=== PATIENT | male | born 1970 | race Caucasian/White ===

== ENCOUNTER 2021-10-17 01:48 | Day surgery (SDC) | payer OTHER, SELFPAY ==
[2021-10-03 13:51] VITALS: BMI 27.1
--- NOTE | 2021-10-16 20:49 | PM.HPGS ---
History of Present Illness History of Present Illness Consent: Risks, benefits, and alternatives have been discussed and questions answered. Patient agrees to proceed with procedure. Chief complaint: neoplasm screening Narrative: Daylin Hernandez is a 51 year old male referred for olon cancer screening Review of Systems Review of Systems: All systems reviewed & are unremarkable except as noted in HPI and below PMFSH Past Medical History Medical History Acute idiopathic gout involving toe of right foot Daytime hypersomnolence OFELIA (obstructive sleep apnea) Snoring Surgical History Surgical History S/P hemorrhoidectomy Status post right foot surgery Social History Social History Smoking packs per day: 0.5 Smoking cigarettes per day: 10.0 Smoking status: Former smoker Tobacco type: cigarettes Second hand tobacco smoke exposure: No Smoking end date: 02/09/16 Alcohol intake: current Drinks per week: 5 Substance use: never Substance use type: does not use Living arrangements: with family Gender identity (if verbalized by the patient): Male Spiritual care concerns: No Meds Home Medications and Allergies Home Medications Medication Instructions Recorded Confirmed Type colchicine 0.6 mg tablet 0.6 mg PO DAILY #30 tabs 09/10/21 10/17/21 Rx meloxicam 7.5 mg tablet 7.5 mg PO DAILY #90 tabs 09/10/21 10/17/21 Rx Allergies Allergy/AdvReac Type Severity Reaction Status Date / Time No Known Allergies Allergy Verified 10/17/21 10:30 Exam Resp: Auscultation: clear to auscultation bilaterally Cardio: Rate: regular rate Rhythm: regular rhythm GI: GI Palp: Yes Soft to palpation and No Tenderness to palpation present (GI) Assessment and Plan Assessment and plan (1) Colon cancer screening: Code(s): Z12.11 - Encounter for screening for malignant neoplasm of colon Status: Acute Assessment and Plan: Colonoscopy with possible biopsy or polypectomy or cautery or injection of substances.
[2021-10-17 10:20] VITALS: BP 134/87; PULSE 70; RESP 18; TEMP 36.7; O2SAT 95; BMI 27.1
[2021-10-17] MEDS: LACTATED RINGERS 1,000 ML 150 ML IV CONT (10:52)
--- NOTE | 2021-10-17 11:24 | P.PNAN_ITS ---
Anes - Initial Pre Proc Eval Procedure: Operation Date: 10/17/21 11:15 Proposed Procedures p Screening Colonoscopy - Augustine Jaffe MD Date/Time: 10/17/21 11:24 Surgeon: Augustine Jaffe MD Pre Op Diagnosis: neoplasm screening Patient Data Age: 51 Gender: M Height: 1.83 m Weight: 91 kg Last Vital Signs Temp 98.0 F 10/17/21 10:20 Pulse 70 10/17/21 10:20 Resp 18 10/17/21 10:20 BP 134/87 10/17/21 10:20 Pulse Ox 95 10/17/21 10:20 O2 Del Method Room Air 10/17/21 10:20 Allergies Allergy/AdvReac Type Severity Reaction Status Date / Time No Known Allergies Allergy Verified 10/17/21 10:30 Home Medications Medication Instructions Recorded Confirmed Type colchicine 0.6 mg tablet 0.6 mg PO DAILY #30 tabs 09/10/21 10/17/21 Rx meloxicam 7.5 mg tablet 7.5 mg PO DAILY #90 tabs 09/10/21 10/17/21 Rx Patient hx anesthesia problems: none Family hx anesthesia problems: none Results Review: All pre-operative results and documents have been reviewed as part of the pre- operative evaluation. [facility] Past Medical History Medical History Acute idiopathic gout involving toe of right foot Daytime hypersomnolence OFELIA (obstructive sleep apnea) Snoring Surgical History Surgical History S/P hemorrhoidectomy Status post right foot surgery Social History Social History Smoking packs per day: 0.5 Smoking cigarettes per day: 10.0 Smoking status: Former smoker Tobacco type: cigarettes Second hand tobacco smoke exposure: No Smoking end date: 02/09/16 Alcohol intake: current Drinks per week: 5 Substance use: never Substance use type: does not use Living arrangements: with family Gender identity (if verbalized by the patient): Male Spiritual care concerns: No Anes - Eval Final PreProcedure Day of Procedure 10/17/21 11:24 Patient weight: normal Heart: regular rate and rhythm Lungs: clear to auscultation Airway: Mallampati scale class II Neurological: alert and oriented Last oral intake: >/= 8 hours ASA classification: II Emergent: no Anesthetic plan: proceed Anesthesia type and monitoring: general GIVS and standard monitoring Results Review: All pre-operative results and documents have been reviewed as part of the pre- operative evaluation. Informed Consent: The patient's anesthetic plan and its attendant risks and benefits were discussed with the patient/family/POA. Questions were solicited and answers provided to the satisfaction of the patient/family/POA.
[2021-10-17] MEDS: SIMETHICONE ORAL SUSPENSION 20 MG/0.3 ML 30 ML BOTTLE 0.6 ML IRRIGATION (11:36)
[2021-10-17 11:47] VITALS: BP 99/58; PULSE 50; RESP 19; O2SAT 99
[2021-10-17 11:57] VITALS: BP 114/74; PULSE 51; RESP 18; O2SAT 100
[2021-10-17 12:07] VITALS: BP 117/80; PULSE 50; RESP 18; O2SAT 100
== END 2021-10-17 12:15 | disposition home or self-care (01) ==
PROVIDERS: PCP Family Medicine; Visit Provider Internal Medicine Gastroenterology
PROC: 0DJD8ZZ Inspection of Lower Intestinal Tract, Via Natural or Artificial Opening Endoscopic (ICD-10-PCS; CPT 45378; principal; 2021-10-17 11:15)
DX: Z12.11 Encounter for screening for malignant neoplasm of colon (principal); M10.071 Idiopathic gout, right ankle and foot; G47.19 Other hypersomnia; G47.33 Obstructive sleep apnea (adult) (pediatric); Z87.891 Personal history of nicotine dependence
CPT/HCPCS: 45378; J2704; J7120

== ENCOUNTER 2022-04-27 10:21 | Outpatient (CLI) | payer OTHER, SELFPAY ==
--- NOTE | ~2022-04-27 | US_ITS ---
US axilla RT 04/27/2022 11:00 Indication: Right axillary pain Procedure: High-resolution Limited ultrasound of the right axilla Comparison: No prior studies for comparison. Findings: There is a normal-appearing right axillary lymph node which retains its fatty hilum.. No jack spicious masses or fluid collections are identified in the right axilla Impression: 1: No suspicious abnormalities of the right axilla. Normal right axillary lymph node. Reviewed, dictated and finalized at location A. Impression: 1: No suspicious abnormalities of the right axilla. Normal right axillary lymph node.
== END 2022-04-27 10:22 | disposition home or self-care (01) ==
PROVIDERS: PCP Family Medicine; Visit Provider Physician Assistant
DX: M79.621 Pain in right upper arm (principal); R59.0 Localized enlarged lymph nodes
CPT/HCPCS: 76882

== ENCOUNTER 2023-04-02 11:04 | Emergency (ER) | payer OTHER, SELFPAY ==
--- NOTE | 2023-04-02 11:11 | ED.SKABFB ---
HPI - Skin/Abscess/Foreign Bdy General Chief complaint: Skin/Abscess/Foreign Body Stated complaint: Left Thumb Splinter Time Seen by Provider: 04/02/23 11:11 Source: patient Mode of arrival: ambulatory Limitations: no limitations History of Present Illness HPI narrative: Patient is a 52-year-old male who presents was metal splinter in left thumb from personal weight set this morning. Patient attempted to remove this morning but was unable. Patient used antibiotic ointment on area. Unsure of last tetanus shot. Related Data Allergies Allergy/AdvReac Type Severity Reaction Status Date / Time No Known Allergies Allergy Verified 04/02/23 11:12 Review of Systems Review of Systems: All systems reviewed & are unremarkable except as noted in HPI and below Constitutional: Constitutional: Denies body ache(s), Denies chills, Denies fatigue, Denies fever(s), Denies headache(s), Denies malaise and Denies weakness Eyes: Eyes: Denies blurry vision, Denies irritation and Denies loss of vision ENT: Denies otalgia, Denies headache(s), Denies nasal discharge, Denies sinus pain and Denies sore throat Cardiovascular: Cardiovascular: Denies chest pain, Denies irregular heart rhythm and Denies dyspnea Respiratory: Respiratory: Denies dyspnea Gastrointestinal: Gastrointestinal: Denies abdominal pain, Denies melena, Denies hematochezia, Denies diarrhea, Denies nausea and Denies vomiting Musculoskeletal: Musculoskeletal: Denies back pain, Denies myalgias and Denies arthralgias Integumentary/Breasts: Skin/Breast: Denies pruritus and Denies rash Neurologic: Denies headache(s), Denies loss of vision and Denies weakness Psychiatric: Psychiatric: Reports no additional psychiatric complaints Endocrine: Endocrine: Denies fatigue PMFSH Past Medical History Medical History Acute idiopathic gout involving toe of right foot Daytime hypersomnolence OFELIA (obstructive sleep apnea) Snoring Surgical History Surgical History S/P hemorrhoidectomy Status post right foot surgery Family History Family History Mother Cancer Other Heart disease Social History Social History Social History: Smoking packs per day: 0.5 Smoking cigarettes per day: 10.0 Smoking status: Former smoker Tobacco type: cigarettes Second hand tobacco smoke exposure: No Smoking end date: 02/09/16 Alcohol intake: current Drinks per week: 5 Substance use: never Substance use type: does not use Do You Feel Safe in your Home?: Yes Lack of Transportation: No Lack of Food: Never True Current Housing: I Have Housing Concerned About Future Housing: No Difficulty Paying Gas/Electric Bills: No Difficulty Paying for Meds: No Currently Unemployed: No Education: Don't Know Difficulty w/ Childcare or Family Care: No Living arrangements: with family Occupation/Education: occupation Gender identity (if verbalized by the patient): Male Sexual Orientation (if Verbalized by the Patient): Straight or Heterosexual Spiritual care concerns: No Comments At time of signature, agree with nursing past medical, surgical, social and family history. There is no relevant family history pertinent to the presenting complaint. Exam Const: General: cooperative, healthy appearing, comfortable, no acute distress and well nourished Nutritional Appearance: well nourished Orientation/consciousness: patient oriented x3 Limitations: no limitations HENMT: Head: normal to inspection, normocephalic and atraumatic Ears: hearing grossly normal bilaterally and external ears normal Face/Nose/Sinus: Normal external nose present, normal facial exam and face symmetric Face and sinus: normal facial exam and face symmetric Mouth: Yes lip
[2023-04-02 11:15] VITALS: BP 127/80; PULSE 60; RESP 16; TEMP 36.4; O2SAT 99
[2023-04-02] MEDS: TETANUS,DIPHTHERIA,AC PERTUSSIS ADULT (0.5 ML) BOOSTRIX IM (12:02)
== END 2023-04-02 12:15 | disposition home or self-care (01) ==
PROVIDERS: Emergency Provider Nurse Practitioner Family; PCP Family Medicine
DX: S60.352A Superficial foreign body of left thumb, initial encounter (principal); W45.8XXA Other foreign body or object entering through skin, initial encounter; Z23 Encounter for immunization; Z87.891 Personal history of nicotine dependence
CPT/HCPCS: 10120; 90471; 90715; 99213; G0463

== ENCOUNTER 2023-05-25 09:48 | Outpatient (CLI) | payer OTHER, SELFPAY ==
--- NOTE | ~2023-05-25 | XR_ITS ---
AP and oblique views of the right ribs, and PA and lateral chest radiographs Clinical History: Pain Findings: Possible fracture the anterior right eighth rib. Osseous alignment is anatomic. Lungs are c lear, without focal consolidation or pleural effusion. Cardiomediastinal contour is within normal osman its. Soft tissues are unremarkable. Impression: Suspected anterior right eighth rib fracture. Correlate for point tenderness. Clear lungs. Reviewed, dictated and finalized at [facility]. Impression: Suspected anterior right eighth rib fracture. Correlate for point tenderness. Clear lungs.
== END 2023-05-25 09:49 | disposition home or self-care (01) ==
LOC: ANHIMG 09:49
PROVIDERS: PCP Family Medicine; Visit Provider Physician Assistant
DX: R07.81 Pleurodynia (principal)
CPT/HCPCS: 71046; 71100

== ENCOUNTER 2023-10-07 09:08 | Outpatient (CLI) | payer OTHER, SELFPAY ==
--- NOTE | ~2023-10-07 | XR_ITS ---
Right Knee Technique: AP and lateral views were obtained. Clinical History: Pain Findings: No acute fracture or dislocation is seen. Chronic fracture fragment at the fibular head not ed. Osseous alignment is anatomic. Joint spaces are preserved without degenerative or erosive change. Soft tissues are unremarkable. No joint effusion is seen. Impression: No acute abnormality. 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 Reviewed, dictated and finalized at location . Impression: No acute abnormality. 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
== END 2023-10-07 09:09 ==
PROVIDERS: PCP Family Medicine; Visit Provider Student in an Organized Health Care Education/Training Program
DX: M25.561 Pain in right knee (principal)
CPT/HCPCS: 73560

== ENCOUNTER 2024-08-07 15:25 | Outpatient (CLI) | payer OTHER, SELFPAY ==
--- OUTSIDE RECORDS SUMMARY | 2024-08-07 15:29 | XMS_ITS | Continuity of Care Document ---
Author Name [facility] Organization [facility] Care Team Providers Care Organic Preparation Technician Name Role Phone [facility] Unavailable Unavailable Problems Combined list of problems from [facility] and [facility] facilities. It does not include entries that were removed or entered in error. Problem Status Onset Date Problem Type Date of Resolution Comments Source Adjustment disorder Active Condition [facility] Alopecia Active Condition [facility] Cervicalgia Active Condition [facility] Exposure to potentially hazardous substance Active Condition [facility] Gout Active Condition [facility] H/O: hypothyroidism Active Condition [facility] Right knee pain Active Condition [facility] Elevated blood-pressure reading without diagnosis of hypertension Inactive Condition 12/03/2023 [facility] Diagnosis: ICD-10-CM Z00.00 Encntr for general adult medical exam w/o abnormal findings Active Diagnosis [facility] Diagnosis: ICD-10-CM M54.2 Cervicalgia Active Diagnosis [facility] Medications Combined list of outpatient medications from [facility] facilities.Medications provided include 1) outpatient medications from the last 15 months, and 2) patient-reported medications. Medication Details Route Status Patient Instructions Prescription Expires Prescription Number Last Dispense Date Ordering Provider Order Date Order Qty Source COLCHICINE 0.6MG TAB TAKE ONE TABLET BY MOUTH PRN [place]AL ROBE BOSSPENELOPE LBY R 2022 [facility] MINOXIDIL 5% SOLN,TOP APPLY 1ML TO AFFECTED AREA(S) ONCE A DAY TOPICA L ACTIVE PENELOPE BOSS LBY R 2023 [facility] Immunizations Combined list of available immunizations from the Department of [facility] and [facility] facilities. Immunization Series Date Given Administered By Site Reaction Lot Number CVX Code Drug Assistant Merchandiser Status Comments Source INFLUENZA, UNSPECIFIED FORMULATION 2023 88 complet ed HISTORICA L INFORMATI ON - FROM PATIENT'S RECALL, [facility] N ZOSTER RECOMBINANT 2 2023 187 complet ed HISTORICA L INFORMATI ON - FROM OTHER REGISTRY, [facility] N ZOSTER RECOMBINANT 1 2023 187 complet ed HISTORICA L INFORMATI ON - FROM OTHER REGISTRY, [facility] N TDAP 2 2023 115 complet ed HISTORICA L INFORMATI ON - FROM OTHER REGISTRY, [facility] N TDAP 2022 CARINE SWEET RIGHT DELTO ID [id number] 115 complet ed [facility] COVID-19 (MODERNA), MRNA, LNP-S, PF, 100 MCG/0.5ML DOSE OR 50 MCG/0.25ML DOSE 1 2020 207 complet ed HISTORICA L INFORMATI ON - FROM OTHER REGISTRY, [facility] COVID-19 (MODERNA), MRNA, LNP-S, PF, 50 MCG/0.5 ML (AGES 12+ YEARS) 1 2020 312 complet ed HISTORICA L INFORMATI ON - FROM PATIENT'S WRITTEN RECORD, Mfr: MODERNA [employer] [facility] COVID-19 (MODERNA), MRNA, LNP-S, PF, 50 MCG/0.5 ML (AGES 12+ YEARS) 5 2020 312 complet ed HISTORICA L INFORMATI ON - FROM PATIENT'S WRITTEN RECORD, [facility] INFLUENZA, INJECTABLE, QUADRIVALENT, PRESERVATIVE FREE 1 2020 150 complet ed HISTORICA L INFORMATI ON - FROM OTHER REGISTRY, [facility] COVID-19 (MODERNA), MRNA, LNP-S, PF, 50 MCG/0.5 ML (AGES 12+ YEARS) 4 2020 312 complet ed HISTORICA L INFORMATI ON - FROM PATIENT'S WRITTEN RECORD, [facility] COVID-19 (MODERNA), MRNA, LNP-S, PF, 50 MCG/0.5 ML (AGES 12+ YEARS) 1 2020 312 complet ed HISTORICA L INFORMATI ON - FROM PATIENT'S WRITTEN RECORD, [facility] TETANUS-DIPTH ERIA-PERTUSIS (TDAP) (HISTORICAL) 2007 139 complet ed [facility] Vital Signs Combined list of inpatient and outpatient Vital Signs from Department of [facility] and [facility] Affairs, ranging from 12 months to all on record, depending upon the facility. Vital Sign Value Date Comments Source SYSTOLIC BLOOD PRESSURE 130 12/03/2023 09:26:04 [facility] DIASTOLIC BLOOD PRESSURE 76 12/03/2023 09:26:04 [facility] PULSE OXIMETRY 96 12/03/2023 09:26:04 [facility] WEIGHT 195 12/03/2023 09:26:04 [facility] PAIN 7 12/03/2023 09:26:04 [facility] TEMPERATURE 97.8 12/03/2023 09:26:04 [facility] PULSE 66 12/03/2023 09:26:04 [facility] Encounters Combined list of: 1) Encounters from [facility] of [facility] Affairs facilities going backup to the last 18 months, not all VA inpatient encounters are included; 2) Encounters from the Department of [facility] facilities going backup to 280 months. Location Location Details Encounter Type Encounter Number Reason For Visit Attending Provider ADM Date DC Date Status Disposition Source [facility] Outpatient Encounter [id number] 04/02 [facility] Outpatient Encounter [id number] 07/27 [facility] Outpatient Encounter [id number] 10/04 [facility] Outpatient Encounter [id number] 11/30 [facility] Outpatient Encounter [id number] Diagnos is: ICD-10- CM M54.2 Cervica lgia KEE,ARNEL ERLY C 12/01 [facility] Outpatient Encounter [id number] 12/02 [facility] Outpatient Encounter [id number] Diagnos is: ICD-10- CM Z00.00 Encntr for general adult medical exam w/o abnorma l finding s KARYN,BILLIE BY R 12/02 [facility] Social History Combined list of available smoking, tobacco, and other social history from Department of Defense and [facility] facilities. 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 Additional future care activities may be listed in the Assessment and Plan section. Date/Time Care Activity Care Activity Detail Facili ty 11/29/2024 AMBULATORY - MEDICINE AMBULATORY - MEDICI NE [facility]
--- OUTSIDE RECORDS SUMMARY | 2024-08-07 15:29 | XMS_ITS | Encounter Summary ---
Author Organization [facility] Address [facility] [place] [address] Care Team Providers Care Head Insulation Board Saw Operator Name Role Phone Shin Veliz MD Primary Care Provider [phone] Encounter Details Date Type Department Care Team (Late st Contact Info) Description 12/01/2018 Prep for Procedure [facility] [id number] [place] [address] Coleman Wyman MD [address] [facility] [address] [place] [address] Social History Tobacco Use Types Packs/Day Years Used Date Smoking Tobacco: Never Assessed Sex and Gender Information Value Date Recorded Sex Assigned at Not on file Legal Sex Male 7:48 AM CDT Gender Identity Not on file Sexual Orientation Not on file documented as of this encounter Plan of Treatment Not on file documented as of this encounter Results * MRSA SCREENING (12/02/2018 10:44 AM CDT) SPEC DESCRIPTION NASAL 12/02/2018 10:38 AM CDT [facility] SPECIAL REQUESTS NO SPECIAL REQUEST 12/02/2018 10:38 AM CDT [facility] CULTURE RESULT NO METHICILLIN RESISTANT STAPH AUREUS ISOLATED 12/03/2018 1:18 PM CDT [facility] SPECIMEN FROM INTERNAL NOSE / Unknown 12/02/2018 10:44 AM CDT 12/02/2018 10:45 AM CDT us Coleman Wyman MD MICROBIOLOGY - GENERAL [place] Final Result [facility] [address] [address] [facility] [place] [address], [place] [phone] documented in this encounter Visit Diagnoses Diagnosis Preop testing- Primary Preoperative examination, unspecified documented in this encounter Care Teams Head Insulation Board Saw Operator Relationship Specialty Start Date End Date Shin Veliz MD [address] [place] [address] PCP - General FAMILY PRACTICE 11/24/18 documented as of this encounter
--- OUTSIDE RECORDS SUMMARY | 2024-08-07 15:29 | XMS_ITS | Clinical Summary ---
Author Organization [facility] Address [address] [place] [address] Care Team Providers Care Inventory Technician Name Role Phone Shin Veliz MD Primary Care Provider [phone] Allergies No known active allergies Medications oxyCODONE-aceta minophen 5-325 MG tabletIndicatio ns:Acute Pain < 7 Day Supply Take 1-2 tablets by mouth every 4 (four) hours as needed for Pain. Indications: Acute Pain < 7 Day Supply 30 tablet 12/05/2018 Active Social History Tobacco Use Types Packs/Day Years Used Date Smoking Tobacco: Never Assessed Sex and Gender Information Value Date Recorded Sex Assigned at Not on file Legal Sex Male 7:48 AM CDT Gender Identity Not on file Sexual Orientation Not on file Last Filed Vital Signs Vital Sign Reading Time Taken Comments Blood Pressure 141/94 12/05/2018 12:45 PM CDT Pulse 86 12/05/2018 11:00 AM CDT Temperature 36.5 C (97.7 F) 12/05/2018 11:00 AM CDT Respiratory Rate 16 12/05/2018 11:00 AM CDT Oxygen Saturation 94% 12/05/2018 12:30 PM CDT Inhaled Oxygen Concentration - - Weight 96.2 kg (212 lb) 12/05/2018 7:15 AM CDT Height 182.9 cm (6') 12/05/2018 7:15 AM CDT Body Mass Index 28.75 12/05/2018 7:15 AM CDT Plan of Treatment Health Maintenance Due Date Last Done Comments Colorectal Cancer Screening Colonoscopy (10 Years) 1972 Annual Physical 09/07/1975 Hepatitis C 1990 DTaP, Tdap and Td Vaccines ( 1 - Tdap) 09/07/1991 Hepatitis B Vaccines (1 of 3 - 19+ 3-dose series) 09/07/1991 Pneumococcal Vaccine: 50+ Ye ars (1 of 1 - PCV) 2022 Zoster Vaccines (1 of 2) 2022 COVID-19 Vaccine (1 - 2023-2 5 season) 2023 Meningococcal B Vaccine Aged Out No l onger eligible based on patient's age to complete this topic Meningococcal Vaccine Aged Out No sohail judy eligible based on patient's age to complete this topic RSV Immunizations Under 20 Months Aged Out No longer eligible based on patient's age to complete this topic Medical Devices Implanted Type Area Crayon Sawyer Device Identifier Shelf Expiration Date Model / Serial / Lot Zip Tight Fixation System Implanted:Qty: 1 on 12/05/2018 by Coleman Wyman MD at [facility] Right: Ankle [employer] 08/29/2023 [id number] / / [id number] Description:Zip Tight Ankle Syndesmosis Zip Tight Fixation System Implanted:Qty: 1 on 12/05/2018 by Coleman Wyamn MD at [facility] Right: Ankle 01/27/2023 [id number] / / [id number] Description:Zip Tight Ankle Syndesmosis Screw Josse 3.5 Cortical Self Tapping 14mm - [id number] Implanted:Qty: 1 on 12/05/2018 by Coleman Wyman MD at [facility] Right: Ankle [employer] [id number] / / Screw Josse 3.5 Cortical Self Tapping 18mm - [id number] Implanted:Qty: 2 on 12/05/2018 by Coleman Wyman MD at [facility] Right: Ankle [employer] [id number] / / Plate Josse Fibular Distal Lateral 8h 132mm Right - [id number] Implanted:Qty: 1 on 12/05/2018 by Coleman Wyman MD at [facility] Right: Ankle [employer] [id number] / / Screw Josse Periloc 3.5 X 16mm - [id number] Implanted:Qty: 3 on 12/05/2018 by Coleman Wyman MD at [facility] Right: Ankle [employer] [id number] / / Screw Locking Josse 2.7 X 12mm - [id number] Implanted:Qty: 1 on 12/05/2018 by Coleman Wyman MD at [facility] Right: Ankle [employer] [id number] / / Screw Locking Josse 2.7 X 18mm - [id number] Implanted:Qty: 1 on 12/05/2018 by Coleman Wyman MD at [facility] Right: Ankle [employer] [id number] / / Explanted Type Area Crayon Sawyer Device Identifier Shelf Expiration Date Model / Serial / Lot Drill Bit Josse 2mm Std - [id number] Explanted:Qty: 1 on 12/05/2018 at [facility] Right: Ankle [employer] [id number] / / Drill Bit Josse 2.5mm - [id number] Explanted:Qty: 1 on 12/05/2018 at [facility] Right: Ankle [employer] [id number] / / Drill Bit Josse 2.7mm Qc - [id number] Explanted:Qty: 1 on 12/05/2018 at [facility] Right: Ankle [employer] [id number] / / Drill Bit Josse 3.5mm Qc - [id number] Explanted:Qty: 1 on 12/05/2018 at [facility] Right: Ankle [employer] [id number] / / Screw Josse Periloc 3.5 X 16mm - [id number] Explanted:Qty: 1 on 12/05/2018 at [facility] Right: Ankle [employer] [id number] / / Insurance Care Teams Inventory Technician Relationship Specialty Start Date End Date Shin Veliz MD [address] [place] [id number] PCP - General FAMILY PRACTICE 11/24/18
[2024-08-07 15:40] LABS: Basophils Percent Auto 0.5 % (0.2-1.2); Eosinophils Absolute Auto 0.1 K/mm3 (0-0.3); Eosinophils Percent Auto 1.8 % (0-4.4); Hematocrit 44.2 % (42.0-52.0); Hemoglobin 14.5 g/dL (14.0-18.0); Lymphocytes Absolute Auto 1.57 K/mm3 (0.9-3.2); Lymphocytes Percent Auto 28.2 % (18.3-44.2); Mean Corpuscular HGB Conc 32.8 g/dl (32-36); Mean Corpuscular Hemoglobin 31.7 pg (26-34); Mean Corpuscular Volume 96.7 fl (80-100); Mean Platelet Volume 11.4 fl (7.4-10.4); Monocytes Absolute Auto 0.4 K/mm3 (0.1-0.6); Monocytes Percent Auto 7.6 % (2.6-8.5); Neutrophils Absolute Auto 3.4 K/mm3 (1.3-6.7); Neutrophils Percent Auto 61.9 % (45.5-73.1); Platelet Count Result 252 k/mm3 (150-375); Red Blood Count 4.57 M/mm3 (4.6-6.20); Red Cell Distribution Width 12.8 % (11.5-14.5); White Blood Count 5.6 K/mm3 (4.5-10.0)
[2024-08-07 15:43] LABS: Add Urine Microscopic? YES; Appearance Urine Clear (Clear); Bacteria Urine None Seen /hpf; Bilirubin Urine Negative (Negative); Blood Urine Negative (Negative); Color Urine Yellow (Yellow); Glucose Urine UA Negative (Negative); Ketones Urine Trace mg/dL (Negative); Leukocyte Esterase Ur Trace LEU/UL (Negative); Nitrate Urine Negative (Negative); Non Pathogenic Casts 0-2; Protein Urine Trace mg/dL (Negative); RBC Urine 0-2 /hpf (0-2); Specific Grav Ur 1.028 (1.001-1.035); Squamous Epithelial Cell Urine None Seen /hpf (Few); WBC Urine 0-5 /hpf (0-3); pH Urine 6.5 (5.0-9.0)
[2024-08-07 15:55] LABS: Alanine Aminotransferase 28 U/L (6-50); Albumin Level 4.9 g/dL (3.5-5.1); Alkaline Phosphatase 38 U/L (38-126); Amylase 55 U/L (30-110); Anion Gap 11 mmol/L (4-12); Aspartate Amino Transferase 39 U/L (17-59); Blood Urea Nitrogen 16 mg/dL (9-20); Calcium 9.7 mg/dL (8.4-10.2); Carbon Dioxide 27 mmol/L (22-30); Chloride 104 mmol/L (98-107); Estimated Glomerular Filt Rate > 60; Glucose 87 mg/dL (65-110); Lipase 76 U/L (23-300); Potassium 4.1 mmol/L (3.4-5.0); Sodium 142 mmol/L (137-145)
== END 2024-08-07 15:26 | disposition home or self-care (01) ==
LOC: ANHLAB 15:27
PROVIDERS: PCP Family Medicine; Visit Provider Family Medicine
DX: R10.11 Right upper quadrant pain (principal)
CPT/HCPCS: 36415; 80053; 81001; 82150; 83690; 85025

== ENCOUNTER 2024-08-18 13:39 | Outpatient (CLI) | payer OTHER, SELFPAY ==
--- NOTE | ~2024-08-18 | CT_ITS ---
Non-contrast CT scan of the Abdomen and Pelvis Clinical indication: Abdominal pain Technique: 2.5 mm axial scans were obtained through the abdomen and pelvis without intravenous or or al contrast. Dose reduction technique was used on this scan by utilizing automated exposure control a nd iterative reconstruction technique. The dose-length product (DLP) was 501.10 mGy-cm. Findings: Images through the lung bases reveal no abnormalities. There is no evidence of renal or ureteral calculi. The kidneys and the ureters are nondilated. The liver, spleen, pancreas, gallbladder, and adrenals appear normal. There is no aortic aneurysm. There is no evidence of bowel obstruction. Images through the pelvis were performed. There is no evidence of ascites or lymphadenopathy. Urinary bladder unremarkable. No pelvic mass seen. Impression: No significant abnormality seen. Reviewed, dictated and finalized at [facility]. Impression: No significant abnormality seen.
--- OUTSIDE RECORDS SUMMARY | 2024-08-18 13:44 | XMS_ITS | Continuity of Care Document ---
Author Name [facility] Organization [facility] Care Team Providers Care Micro Computer Specialist Name Role Phone [facility] Unavailable Unavailable Problems Combined list of problems from Department of Defense and Veterans Affairs facilities. It does not include entries that were removed or entered in error. Problem Status Onset Date Problem Type Date of Resolution Comments Source CLBP - Chronic low back pain Active 1 Condition Unknown Organization Thoracic back pain Active 1 Condition Unknown Organization Adjustment disorder Active Condition [facility] Alopecia Active Condition [facility] Cervicalgia Active Condition [facility] Exposure to potentially hazardous substance Active Condition [facility] Gout Active Condition [facility] H/O: hypothyroidism Active Condition [facility] Right knee pain Active Condition [facility] Elevated blood-pressure reading without diagnosis of hypertension Inactive Condition 12/03/2023 [facility] Gout, unspecified Active Condition [facility] ASSESSMENT OF PATIENT CONDITION WORK STATUS Inactive Condition [facility] Outpatient Physician Consultation Active Condition [facility] Patient Counseling: Inactive Condition [facility] HYPOTHYROIDISM SUBCLINICAL Active Condition [facility] FATIGUE Active Condition [facility] CONDITIONS INFLUENCING HEALTH STATUS Active Condition [facility] Administrative Evaluation Services Inactive Condition [facility] HEMORRHOIDS THROMBOSED Active Condition [facility] visit for: administrative purpose Inactive Condition [facility] ANKLE SPRAIN Inactive Condition [facility] joint pain, localized in the shoulder Active Condition [facility] ENTERITIS ACUTE INFECTIOUS Active Condition DoD Need For Vaccination Typhoid Inactive Condition [facility] Diagnosis: ICD-10-CM Z00.00 Encntr for general adult medical exam w/o abnormal findings Active Diagnosis [facility] Diagnosis: ICD-10-CM M54.2 Cervicalgia Active Diagnosis [facility] Medications Combined list of outpatient medications from Department of Defense and Veterans Affairs facilities.Medications provided include 1) outpatient medications from the last 15 months, and 2) patient-reported medications. Medication Details Route Status Patient Instructions Prescription Expires Prescription Number Last Dispense Date Ordering Provider Order Date Order Qty Source colchicine 0.6 mg oral tablet colchici ne 0.6 mg oral tablet Start Date: 01/17/19 Status: Ordered Repeat number: 1 Ordered 2020 No Facilit y Access COLCHICINE 0.6MG TAB TAKE ONE TABLET BY MOUTH PRN ORAL ACTIVE PENELOPE BOSS LBY R 2022 [facility] meloxicam 7.5 mg oral tablet 1 tab(s), Oral, Daily, # 90 tab(s), 0 total refill(s ), Maintena nce Oral (given by mouth) Ordered 2020 90.0 [id number]-D [facility] MINOXIDIL 5% SOLN,TOP APPLY 1ML TO AFFECTED AREA(S) ONCE A DAY TIMOTHY Thompson ACTIVE PENELOPE BOSS LBY R 2023 [facility] SHINGRIX (varicella- zoster virus glycoprotei n E,rec/AS01B adjuvant/PF ), 50 MCG/0.5, KIT, INTRAMUSC, RetSKU LINE, 1 ea. KIT Active [id number] 2023 1 Pharmac y Data Transac tion Service Facilit y sulfamethox azole-trime thoprim 800 mg-160 mg oral tablet 0 total refill(s ) Discont inued 09/10/20202020 No Facilit y Access Allergies, Adverse Reactions, Alerts Combined list of allergies from Department of Defense and Veterans Affairs facilities. It does not include entries that were removed or entered in error. Substance Category Reaction Severity Reaction type Status Date Reported Comments Source No Known Allergies Drug allergy (disorder) active 02/16/2013 [facility] [place] Immunizations Combined list of available immunizations from the Department of Defense and Veterans Affairs facilities. Immunization Series Date Given Administered By Site Reaction Lot Number CVX Code Drug Specialty Plant Supervisor Status Comments Source INFLUENZA, UNSPECIFIED FORMULATION 2023 88 complet ed HISTORICA L INFORMATI ON - FROM PATIENT'S RECALL, [facility] ZOSTER RECOMBINANT 2 2023 187 complet ed HISTORICA L INFORMATI ON - FROM OTHER REGISTRY, [facility] ZOSTER RECOMBINANT 1 2023 187 complet ed HISTORICA L INFORMATI ON - FROM OTHER REGISTRY, [facility] zoster recombinant 2023 () Not Given zoster recombina nt DoD TDAP 2 2023 115 complet ed HISTORICA L INFORMATI ON - FROM OTHER REGISTRY, [facility] TDAP 2022 CARINE SWEET RIGHT DELTO ID [id number] 115 complet ed [facility] [place], [facility] COVID-19 (MODERNA), MRNA, LNP-S, PF, 100 MCG/0.5ML DOSE OR 50 MCG/0.25ML DOSE 1 2020 207 complet ed HISTORICA L INFORMATI ON - [facility] (MODERNA), MRNA, LNP-S, PF, 50 MCG/0.5 ML (AGES 12+ YEARS) 1 2020 312 complet ed HISTORICA L INFORMATI ON - FROM PATIENT'S WRITTEN RECORD, Mfr: [employer] [facility] COVID-19, mRNA, LNP-S, PF, 100 mcg or 50 mcg dose 2020 YULY Moderna [employer] (MOD) Not Given COVID-19, mRNA, LNP-S, PF, 100 mcg or 50 mcg dose DoD COVID-19 (MODERNA), MRNA, LNP-S, PF, 50 MCG/0.5 ML (AGES 12+ YEARS) 5 2020 312 complet ed HISTORICA L INFORMATI ON - FROM PATIENT'S WRITTEN RECORD, [facility] INFLUENZA, INJECTABLE, QUADRIVALENT, PRESERVATIVE FREE 1 2020 150 complet ed HISTORICA L INFORMATI ON - FROM OTHER REGISTRY, [facility] COVID Vaccine Moderna 2020 [id number] complet ed COVID Vaccine Moderna 03/15/20 Given Ambulat ory Pharmac y COVID-19 (MODERNA), MRNA, LNP-S, PF, 50 MCG/0.5 ML (AGES 12+ YEARS) 4 2020 312 complet ed HISTORICA L INFORMATI ON - FROM PATIENT'S WRITTEN RECORD, [facility] SARS-COV-2 (COVID-19) vaccine, mRNA, spike protein, LNP, preservative free, 100 mcg or 50 mcg dose 1 2020 [id number] 207 [employer] (MOD) complet ed SARS-COV- 2 (COVID-19 ) vaccine, mRNA, spike protein, LNP, preservat obdulia free, 100 mcg or 50 mcg dose DoD COVID Vaccine Moderna 2020 [id number] complet ed COVID Vaccine Moderna 02/20/20 Given Ambulat ory Pharmac y COVID-19 (MODERNA), MRNA, LNP-S, PF, 50 MCG/0.5 ML (AGES 12+ YEARS) 1 2020 312 complet ed HISTORICA L INFORMATI ON - FROM PATIENT'S WRITTEN RECORD, [facility] SARS-COV-2 (COVID-19) vaccine, mRNA, spike protein, LNP, preservative free, 100 mcg or 50 mcg dose 1 2020 [id number] 207 [employer] (MOD) complet ed SARS-COV- 2 (COVID-19 ) vaccine, mRNA, spike protein, LNP, preservat obdulia free, 100 mcg or 50 mcg dose DoD influenza, injectable, quadrivalent 2019 Geraldine galeano Arm [id number] 158 [employer] complet ed influenza , injectabl e, quadrival ent 11/13/19 Given Ambulat ory Pharmac y influenza, injectable, quadrivalent, contains preservative 1 2019 CLIF GARY [id number] 158 [employer] (SEQ) complet ed influenza , injectabl e, quadrival ent, contains preservat obdulia DoD Influenza, injectable, quadrivalent, preservative free 1 2019 [id number] 150 [employer] (SEQ) complet ed Influenza , injectabl e, quadrival ent, preservat obdulia free DoD influenza, injectable, quadrivalent- pf 2017 [id number] 150 [employer] complet ed influenza , injectabl e, quadrival ent-pf 12/11/17 Given Ambulat ory Pharmac y Influenza, injectable, quadrivalent, preservative free 1 2017 [id number] 150 [employer] (SEQ) comple t ed Influenza , injectabl e, quadrival ent, preservat obdulia free DoD Influenza, inj, MDCK, quadrivalent- pf 2016 [id number] 171 [employer] complet ed Influenza , inj, MDCK, quadrival ent-pf 12/12/16 Given Ambulat ory Pharmac y Influenza, injectable, Madin [place] Canine Kidney, preservative free, quadrivalent 1 2016 [id number] 171 [employer] (SEQ) comple t ed Influenza , injectabl e, Madin [place] Canine Kidney, preservat obdulia free, quadrival ent DoD influenza, injectable, quadrivalent- pf 2015 [id number] 150 [facility] complet ed influenza , injectabl e, quadrival ent-pf 11/27/15 Given Ambulat ory Pharmac y Influenza, injectable, quadrivalent, preservative free 1 2015 [id number] 150 [facility] (B) complet ed Influenza , injectabl e, quadrival ent, preservat obdulia free DoD measles/mumps /rubella virus vaccine 2014 [id number] Merck & Company Inc complet ed measles/m umps/rube lla virus vaccine 12/28/14 Given Ambulat ory Pharmac y measles, mumps and rubella virus vaccine 1 2014 [id number] 03 Merck (MSD) complet ed measles, mumps and rubella virus vaccine DoD influenza, injectable, quadrivalent 2014 [id number] 158 Novartis Pharm[employer] ls complet ed influenza , injectabl e, quadrival ent 12/24/14 Given Ambulat ory Pharmac y influenza, injectable, quadrivalent, contains preservative 1 2014 [id number] 158 Novartis Pharmaceutica l Darrick. (NOV) complet ed influenza , injectabl e, quadrival ent, contains preservat obdulia DoD varicella virus vaccine 2014 UNK 21 Unknown complet ed varicella virus vaccine 03/21/14 Given Ambulat ory Pharmac y varicella virus vaccine 1 2014 UNK 21 Unknown (UNK) Not Given varicella virus vaccine DoD varicella virus vaccine 1 2013 UNK 21 Unknown (UNK) Not Given varicella virus vaccine DoD influenza, seasonal, injectable-pf 2013 [id number] 140 Nov[employer]is Pharm[employer] ls complet ed influenza , seasonal, injectabl e-pf 11/06/13 Given Ambulat ory Pharmac y Influenza, seasonal, injectable, preservative free 1 2013 [id number] 140 Nov[employer]is Pharmaceutica l Darrick. (DEC) complet ed Influenza , seasonal, injectabl e, preservat obdulia free DoD influenza, seasonal, injectable-pf 2012 [id number] 140 Nov[employer]is Pharm[employer] ls complet ed influenza , seasonal, injectabl e-pf 11/24/12 Given Ambulat ory Pharmac y Influenza, seasonal, injectable, preservative free 1 2012 [id number] 140 Novartis Pharm[employer]ica l Darrick. (DEC) complet ed Influenza , seasonal, injectabl e, preservat obdulia free DoD tetanus, diphtheria, acellular pertu is 2012 [id number] 115 Gl[employer] nj complet ed tetanus, diphtheri a, acellular pertussis 05/12/12 Given Ambulat ory Pharmac y tetanus toxoid, reduced diphtheria toxoid, and acellular pertu is vaccine, adsorbed 0 2012 [id number] 2AA 115 [facility] (SKB) complet ed tetanus toxoid, reduced diphtheri a toxoid, and acellular pertussis vaccine, adsorbed DoD influenza, seasonal, injectable-pf 2011 [id number] 140 CSL Behring complet ed influenza , seasonal, injectabl e-pf 11/06/11 Given Ambulat ory Pharmac y Influenza, seasonal, injectable, preservative free 1 2011 [id number] 140 [employer] (CSL) complet ed Influenza , seasonal, injectabl e, preservat obdulia free DoD influenza, seasonal, injectable-pf 2010 [id number] 1A 140 CSL Behring complet ed influenza , seasonal, injectabl e-pf 12/14/10 Given Ambulat ory Pharmac y Influenza, seasonal, injectable, preservative free 1 2010 [id number] 1A 140 [employer] (CSL) complet ed Influenza , seasonal, injectabl e, preservat obdulia free DoD hepatitis A-hepatitis B vaccine 2010 [id number] 3DA 104 GlaxoSmithKli nj complet ed hepatitis A-hepatit is B vaccine 09/30/10 Given Ambulat ory Pharmac y hepatitis A and hepatitis B vaccine 4 2010 [id number] 3DA 104 [employer] (SKB) complet ed hepatitis A and hepatitis B vaccine DoD influenza virus vaccine,split 2009 [id number] 15 CSL Behring complet ed influenza virus vaccine,s plit 12/14/09 Given Ambulat ory Pharmac y influenza virus vaccine, split virus (incl. purified surface antigen)-reti red CODE 1 2009 [id number] 15 [facility] [employer] (CSL) complet ed influenza virus vaccine, split virus (incl. purified surface antigen)- retired CODE DoD Novel influenza-H1N 1-09, injectable 2009 [id number] 1 127 Novartis Pharmaceutica ls complet ed Novel influenza -[id number], injectabl e 04/07/09 Given Ambulat ory Pharmac y Novel influenza-H1N 1-09, injectable 1 2009 [id number] 1 127 Novartis Pharmaceutica l Darrick. (NOV) complet ed Novel influenza -[id number], injectabl e DoD influenza virus vaccine,split 2008 [id number] 1A 15 sanofi pasteur complet ed influenza virus vaccine,s plit 11/08/08 Given Ambulat ory Pharmac y influenza virus vaccine, split virus (incl. purified surface antigen)-reti red CODE 1 2008 [id number] 1A 15 Sanofi Pasteur ([facility]) complet ed influenza virus vaccine, split virus (incl. purified surface antigen)- retired CODE DoD anthrax vaccine 2007 UNK 24 NICOLE complet ed anthrax vaccine 05/30/07 Given Ambulat ory Pharmac y anthrax vaccine 3 2007 UNK 24 Miles (MIL) complet ed anthrax vaccine DoD vaccinia (smallpox) vaccine 2007 UNK 75 [employer] complet ed vaccinia (smallpox ) vaccine 04/26/07 Given Ambulat ory Pharmac y anthrax vaccine 2007 UNK 24 [employer] complet ed anthrax vaccine 04/26/07 Given Ambulat ory Pharmac y anthrax vaccine 2 2007 UNK 24 [employer] [place] ([facility]) complet ed anthrax vaccine DoD vaccinia (smallpox) vaccine 1 2007 UNK 75 [facility] ([facility]) complet ed vaccinia (smallpox ) vaccine DoD tuberculin purified protein derivative 2007 [id number] 96 sanofi pasteur complet ed tuberculi n purified protein derivativ e 04/06/07 Given Ambulat ory Pharmac y typhoid Vi capsular polysaccharid e vac 2007 [id number] 101 sanofi pasteur complet ed typhoid Vi capsular polysacch aride vac 04/06/07 Given Ambulat ory Pharmac y anthrax vaccine 2007 UNK 24 [employer] complet ed anthrax vaccine 04/06/07 Given Ambulat ory Pharmac y anthrax vaccine 1 2007 UNK 24 [employer] [place] (MIP) complet ed anthrax vaccine DoD typhoid Vi capsular polysaccharid e vaccine 1 2007 [id number] 101 Sanofi Pasteur ([facility]) complet ed typhoid Vi capsular polysacch aride vaccine DoD TETANUS-DIPTH ERIA-PERTUSIS (TDAP) (HISTORICAL) 2007 139 complet ed [facility] yellow fever vaccine 2007 UNK 37 Unknown complet ed yellow fever vaccine 02/19/07 Given Ambulat ory Pharmac y influenza virus vaccine, unspecified 2007 UNK 88 Unknown complet ed influenza virus vaccine, unspecifi ed 02/19/07 Given Ambulat ory Pharmac y yellow fever vaccine 1 2007 UNK 37 Unknown (UNK) comple t ed yellow fever vaccine DoD influenza virus vaccine, unspecified formulation 1 2007 UNK 88 Unknown (UNK) comple t ed influenza virus vaccine, unspecifi ed formulati on DoD influenza virus vaccine, whole virus 2005 [id number] 16 [employer] Inc comple t ed influenza virus vaccine, whole virus 11/27/05 Given Ambulat ory Pharmac y influenza virus vaccine, whole virus 1 2005 CHELO MCPHERSON * [id number] [employer] Inc. (MED) complet ed influenza virus vaccine, whole virus DoD typhoid Vi capsular polysaccharid e vac 2005 zzLef t Arm [id number] 101 sanofi pasteur complet ed typhoid Vi capsular polysacch aride vac 06/16/05 Given Ambulat ory Pharmac y typhoid Vi capsular polysaccharid e vaccine 1 2005 CHELO MCPHERSON * [id number] 101 Sanofi Pasteur ([facility]) complet ed typhoid Vi capsular polysacch aride vaccine DoD typhoid Vi capsular polysaccharid e vac 2005 UNK 101 Unknown complet ed typhoid Vi capsular polysacch aride vac 06/12/05 Given Ambulat ory Pharmac y typhoid Vi capsular polysaccharid e vaccine 1 2005 UNK 101 Unknown (UNK) comple t ed typhoid Vi capsular polysacch aride vaccine DoD hepatitis A-hepatitis B vaccine 2004 UNK 104 Unknown complet ed hepatitis A-hepatit is B vaccine 01/07/05 Given Ambulat ory Pharmac y hepatitis A and hepatitis B vaccine 3 2004 Unknown, Provider UNK 104 Unknown (UNK) complet ed hepatitis A and hepatitis B vaccine DoD hepatitis A-hepatitis B vaccine 2004 UNK 104 Unknown complet ed hepatitis A-hepatit is B vaccine 11/05/04 Given Ambulat ory Pharmac y hepatitis A and hepatitis B vaccine 3 2004 UNK 104 Unknown (UNK) comple t ed hepatitis A and hepatitis B vaccine DoD hepatitis A-hepatitis B vaccine 2004 UNK 104 Unknown complet ed hepatitis A-hepatit is B vaccine 10/29/04 Given Ambulat ory Pharmac y hepatitis A and hepatitis B vaccine 2 2004 Unknown, Provider UNK 104 Unknown (UNK) complet ed hepatitis A and hepatitis B vaccine DoD hepatitis A-hepatitis B vaccine 2004 UNK 104 Unknown complet ed hepatitis A-hepatit is B vaccine 05/21/04 Given Ambulat ory Pharmac y influenza virus vaccine,split 2004 UNK 15 Unknown complet ed influenza virus vaccine,s plit 05/21/04 Given Ambulat ory Pharmac y poliovirus vaccine, inactivated 2004 UNK 10 Unknown complet ed polioviru s vaccine, inactivat ed 05/21/04 Given Ambulat ory Pharmac y measles/mumps /rubella virus vaccine 2004 UNK 03 Unknown complet ed measles/m umps/rube lla virus vaccine 05/21/04 Given Ambulat ory Pharmac y tuberculin purified protein derivative 2004 UNK 96 Unknown complet ed tuberculi n purified protein derivativ e 05/21/04 Given Ambulat ory Pharmac y meningococcal polysaccharid e (MPSV4) 2004 UNK 32 Unknown complet ed meningoco ccal polysacch aride (MPSV4) 05/21/04 Given Ambulat ory Pharmac y tetanus-dipht h toxoids (Td) adult/adol 2004 UNK 09 Unknown complet ed tetanus-d iphth toxoids (Td) adult/ado l 05/21/04 Given Ambulat ory Pharmac y measles, mumps and rubella virus vaccine 1 2004 Unknown, Provider UNK 03 Unknown (UNK) complet ed measles, mumps and rubella virus vaccine DoD tetanus and diphtheria toxoids, adsorbed, preservative free, for adult use (2 Lf of tetanus toxoid and 2 Lf of diphtheria toxoid) 1 2004 Unknown, Provider UNK 09 Unknown (UNK) complet ed tetanus and diphtheri a toxoids, adsorbed, preservat obdulia free, for adult use (2 Lf of tetanus toxoid and 2 Lf of diphtheri a toxoid) DoD poliovirus vaccine, inactivated 1 2004 Unknown, Provider UNK 10 Unknown (UNK) complet ed polioviru s vaccine, inactivat ed DoD influenza virus vaccine, split virus (incl. purified surface antigen)-reti red CODE 1 2004 Unknown, Provider UNK 15 Unknown (UNK) complet ed influenza virus vaccine, split virus (incl. purified surface antigen)- retired CODE DoD meningococcal polysaccharid e vaccine (MPSV4) 1 2004 Unknown, Provider UNK 32 Unknown (UNK) complet ed meningoco ccal polysacch aride vaccine (MPSV4) DoD tuberculin skin test; purified protein derivative solution, intradermal 1 2004 Unknown, Provider UNK 96 Unknown (UNK) complet ed tuberculi n skin test; purified protein derivativ e solution, intraderm al DoD hepatitis A and hepatitis B vaccine 1 2004 Unknown, Provider UNK 104 Unknown (UNK) complet ed hepatitis A and hepatitis B vaccine DoD Vital Signs Combined list of inpatient and outpatient Vital Signs from Department of Defense and Veterans Affairs, ranging from 12 months to all on record, depending upon the facility. Vital Sign Value Date Comments Source SYSTOLIC BLOOD PRESSURE 130 12/03/19 24 09:26:04 [facility] DIASTOLIC BLOOD PRESSURE 76 024 09:26:04 [facility] PULSE OXIMETRY 96 12/03/2023 09:26:04 [facility] WEIGHT 195 12/03/2023 09:26:04 [facility] PAIN 7 12/03/2023 09:26:04 [facility] TEMPERATURE 97.8 12/03/2023 09:26:04 [facility] PULSE 66 12/03/2023 09:26:04 [facility] Peripheral Pulse Rate 61 bpm 09/09/2020 16:48:[address] [place] [address] Respiratory Rate 16 br/min 09/09/2020 16:48:[address] [place] [address] BP Site Left arm 09/09/2020 16:48:[address] [place] [address] Systolic Blood Pressure 123 mm[Hg] 09/10/19 21 16:48:[address] [place] [address] Diastolic Blood Pressure 81 mm[Hg] 021 16:48:[address] [place] [address] Temperature Oral 37 Breana 09/09/2020 16:48:[address] [place] [address] Blood Pressure Manual Automatic 09/09/2020 16:48:[address] [place] [address] Mean Arterial Pressure, Calc 95 mm[Hg] 09/09/2020 16:48:[address] [place] [address] Encounters Combined list of: 1) Encounters from Department of Veterans Affairs facilities going backup to the last 18 months, not all VA inpatient encounters are included; 2) Encounters from the Department of Defense facilities going backup to 280 months. Location Location Details Encounter Type Encounter Number Reason For Visit Attending Provider ADM Date DC Date Status Disposition Source [facility]) OUTPATIENT [id number] CHELO MCPHERSON *INACTIVE* 06/16 Released w/o Limitations [employer] [employer]([facility]) OUTPATIENT [id number] MANJEET Yap 11/03 Sick at Home/Quarter s [employer]([facility]) [employer]([facility]) OUTPATIENT [id number] 0900 lt shoulde r MINNA Wagoner 01/13 Released with Work/Duty Limitations [employer]([facility]) [employer]([facility]) OUTPATIENT [id number] right ankle pain EDGAR MORTENSEN 03/03 Released with Work/Duty Limitations [employer]([facility]) [place](Integr ated Disabilit y Eval Sys) OUTPATIENT [id number] OUT JENNI SIMPSON 06/04 Released w/o Limitations [place](Inte grated Disabil ity Eval Sys) [facility] [employer]) OUTPATIENT [id number] hemrrho RODDY Goss 10/18 [facility]ased w/o Limitations [facility] Med Team A) TELE CONSULT [id number] Notes Entered by: Arielle MORAN 19 Oct 2011 1500 ------- ------- ------- ------- -- AFTER HOURS/U [facility] FISH KARIMI 10/18 [facility] [employer] [facility]) TELE CONSULT [id number] Notes Entered by: Arielle MALIK 21 Oct 2011 1621 ------- ------- ------- ------- -- RODDY Merritt 10/20 [facility] t) TELE CONSULT [id number] Notes Entered by: PITA DO SA 29 Oct 2011 1052 ------- ------- ------- ------- -- Admissi on notific ation MARLYN RIOS 10/28 [facility]erred for Appointment [facility] Case Managem ent) [facility] Team B) OUTPATIENT [id number] possibl e low testost erone levels AMELIE SONI 04/18 Released w/o Limitations [facility]) TELE CONSULT [id number] Notes Entered by: MARI SONI TTHEW Harry 25 Apr 2012 0719 ------- ------- ------- ------- -- Lab results AMELIE SONI 04/25 [facility] Team [facility]) OUTPATIENT [id number] f/u lab results GERONIMOTRINI Naun 05/12 Released w/o Limitations [facility] Team [facility]) TELE CONSULT [id number] Notes Entered by: KEIKO VELIZ 21 Oct 2012 0712 ------- ------- ------- ------- -- triage: shoulde r pain, elbow pain AMY MEDRANO 10/21 [facility] [facility] Med Team A) TELE CONSULT [id number] Notes Entered by: FLORIDALMA BAR 25 Oct 2012 1035 ------- ------- ------- ------- -- PLEASE REVIEW NETWORK RESULTS - URGENT CARE - 10/22/19 13 RENARD RAMIREZ 10/25 grant hospital [facility] Med Team A) grant hospital [facility] Med Team A) OUTPATIENT [id number] left shoulde r injury RODDY MALIK 11/18 Released with Work/Duty Limitations grant hospital [facility] Med Team A) RUBY Renee([facility] Site) OUTPATIENT [id number] Notes Entered by: LINDSAY BRADY 01 Dec 2012 1308 ------- ------- ------- ------- -- PreDepl oy Ocrt 2012 YAMIA COFFMAN 12/01 Released w/o Limitations RUBY Renee([facility] Site) grant hospital [facility] Med Team A) TELE CONSULT [id number] Notes Entered by: GUERO TRAVIS 13 Jan 2013 1040 ------- ------- ------- ------- -- Please Review Network Results - PT - 3 RODDY MALIK 01/13 grant hospital [facility] Med Team A) grant hospital [facility] Med Team A) OUTPATIENT [id number] left elbow pain x 3 months RENARD RAMIREZ 04/25 Released w/o Limitations [address] [place] [address]([facility] Med Team A) RUBY Renee([facility] Site) OUTPATIENT [id number] Notes Entered by: VAUGHN TUTTLE 24 Nov 2013 0734 ------- ------- ------- ------- -- RODDY WELCH 11/24 Released w/o Limitations RUBY Renee([facility] Site) [facility] [place]([facility] Deploymen t Clinic) OUTPATIENT [id number] Notes Entered by: GABRIELLA CONNOLLY 09 Jan 2014 0915 ------- ------- ------- ------- -- PILI BABB 01/09 Released w/o Limitations [facility] [place]([facility]) [address] [place] [address]([facility] Med Team A) OUTPATIENT [id number] twisted neck and at times have 6/10 pain RODDY MALIK 02/23 Released w/o Limitations grant hospital [facility] Med Team A) RUBY Renee([facility] Site) OUTPATIENT [id number] RODDY CULLEN 03/16 Released w/o Limitations RUBY Renee([facility] Site) grant hospital [facility](HAF B [facility] Med Team A) TELE CONSULT [id number] Notes Entered by: GUERO TRAVIS 09 Apr 2014 1551 ------- ------- ------- ------- -- Please Review Network Results - PT - 04/09/14 HAIMS Artif[employer] ts&Imag es RODDY MALIK 04/09 grant hospital Medical Group(H AFB [facility] Med Team A) [facility] [place]([facility] Hearing Program) OUTPATIENT [id number] Notes Entered by: ENRICO TRISTAN 31 Dec 2014 0938 ------- ------- ------- ------- -- wax in right ear. post deploym ent WINNIE TRISTAN 12/31 Released w/o Limitations [facility] [place]([facility] Hearing Program ) [facility] [place]([facility] Deploymen t Clinic) OUTPATIENT [id number] Notes Entered by: PRESLEY LOVE 31 Dec 2014 1238 ------- ------- ------- ------- -- MADY Stafford 12/31 Released w/o Limitations [facility] [place]([facility]) DARSHAN Bill([facility]) OUTPATIENT [id number] Leg Pain ROCIO SPARKS 09/04 Released with Work/Duty Limitations DARSHAN Buenrostro([facility] ) [facility] [place]([facility] Deploymen t Clinic) OUTPATIENT [id number] Notes Entered by: ARMAND KNOX 13 Nov 2019 1421 ------- ------- ------- ------- -- SIMONA MCDOWELL USAEDGAR WRIGHT 11/12 Released w/o Limitations [facility] [place]([facility]) [facility]) OUTPATIENT [id number] Notes Entered by: ALCIDES HARRISON 10 Jan 2020 0837 ------- ------- ------- ------- -- Raptor left foot BILL RAMIREZ F 01/09 Released w/o Limitations [facility](O rthoped ics Clinic) [facility]) OUTPATIENT [id number] 1 L FOOT and R ANKLE X RAY F/U BILL RAMIREZ F 02/05 Released w/o Limitations [facility]) OUTPATIENT [id number] Notes Entered by: ROBB ELISE 20 Feb 2020 1442 ------- ------- ------- ------- -- COVID VX LINE VERONICA ELISE 02/19 Released w/o Limitations [facility]) [facility]) OUTPATIENT [id number] 3 pain in neck near thyroid /x 1 wk// [phone] VIN CAMEJO 02/28 Released w/o Limitations [address] [place] [address] Group([facility]) [facility] unization s Clinic) OUTPATIENT [id number] 2 dose [phone] CATHERINE MARIA 03/15 Released w/o Limitations [facility](I mmuniza tions Clinic) [facility]) OUTPATIENT [id number] 9 back pain x1mo - getting worse LIZETT BARRERA 03/20 Released w/o Limitations [address] [place] [address] Group([facility]) [place]amar [place]ang [place]([facility] Tera) OUTPATIENT [id number] Notes Entered by: YUN MAYFIELD 03 Dec 2020 0902 ------- ------- ------- ------- -- DARÍO THAKKAR 12/03 Released w/o Limitations [place]ang [place](Sold [facility] Tera ) [place]ang [place]([facility]) OUTPATIENT [id number] Notes Entered by: ALDEN GIL 03 Dec 2020 1028 ------- ------- ------- ------- -- post deploym ent PADMINI HERNÁNDEZ 12/03 Released w/o Limitations [place]ang [place]([facility] Hearing Prog-We ome Ctr) [place]amar [place]ang [place]([facility] S06D Prim) OUTPATIENT [id number] EDINSON Souza 12/05 Released w/o Limitations [place]amar Jang [place]([facility] Carm[facility]) [facility] Outpatient Encounter [id number] 04/02 [facility] Outpatient Encounter [id number] 07/27 [facility] Outpatient Encounter [id number] 10/04 [facility] Outpatient Encounter [id number] 11/30 [facility] Outpatient Encounter [id number] Diagnos is: ICD-10- CM M54.2 Cervica ARNEL Rizo 12/01 [facility] Outpatient Encounter [id number] 12/02 [facility] Outpatient Encounter [id number] Diagnos is: ICD-10- CM Z00.00 Encntr for general adult medical exam w/o abnorma l BILLIE Steele 12/02 Preeti BANEGAS [facility] Procedures Combined list of: 1) Procedures from Department of Veterans Affairs facilities going back up to thelast 18 months, not all VA non-surgical procedures are included; 2) All procedures from the Department of Defense facilities. Procedure Procedure Type Code Date Perfomer Comments Sourc e No data available for this section Ambulatory Pharmacy Cerumen Removal Right Ear Curette Cerumen Removal Right Ear Curette 83225 2014 WINNIE TRISTAN [facility] Testing Audiometry Group Testing 87125 2014 WINNIE TRISTAN Serum HDL Cholesterol Serum HDL Cholesterol 69585 2014 SHIRLEY TRUJILLO Total Cholesterol Total Cholesterol 90585 03/16 SHIRLEY TRUJILLO Venipuncture Venipuncture 78005 2014 SHIRLEY TRUJILLO Performed in clinic, AC Vein [facility] Non-Physician Phone Call To Patient/Provider Brief (5-10min) Non-Physician Phone Call To Patient/Provider Brief (5-10min) [id number] 2012 AMY MEDRANO [facility] Coordinated care fee, maintenance rate 2011 MARLYN RIOS [facility] Case Management, each 15 minutes 2011 MARLYN RIOS Immunization Administration One Vaccine Immunization Administration One Vaccine 81590 2005 CHELO MCPHERSON *INACTIVE* Brenna Typhoid Vaccine Vi Capsular Polysaccharide, For Intramus Use Typhoid Vaccine Vi Capsular Polysaccharide, For Intramus Use 61648 2005 CHELO MCPHERSON *INACTIVE* [facility] Psychiatric Evaluation Comprehensive Examination Psychiatric Evaluation Comprehensive Examination 66324 CARMELA URIBE DoD Immunization Administration One Vaccine Immunization Administration One Vaccine 19429 EDGAR CLOUD [facility] Waiver services; not otherwise specified (NOS) VIN CAMEJO A e ment & Intervention Blood Pre ure Measured Assessment & Intervention Blood Pressure Measured 2000F DARÍO CLAY Screening Test Of Visual Acuity, Quantitative, Bilateral Screening Test Of Visual Acuity, Quantitative, Bilateral 91319 DARÍO CLAY Venipuncture Venipuncture 63734 DARÍO CLAY [facility] Audiometry Group Testing Audiometry Group Testing 19162 PADMINI HERNÁNDEZ [facility] Ear Protector Attenuation Measurements Ear Protector Attenuation Measurements 82766 PADMINI HERNÁNDEZ [facility] AMBULATORY BLOOD PRESSURE MONITORING, UTILIZING REPORT-GENERATING SOFTWARE, AUTOMATED, WORN CONTINUOUSLY FOR 24 HOURS OR LONGER; INCLUDING RECORDING, SCANNING ANALYSIS, INTERPRETATION AND REPORT 2004 [facility] EAR PROTECTOR ATTENUATION MEASUREMENTS 2020 [facility] COLLECTION OF VENOUS BLOOD BY VENIPUNCTURE 2020 [facility] WAIVER SERVICES; NOT OTHERWISE SPECIFIED (NOS) 2020 [facility] PATIENT EDUCATION, NOT OTHERWISE CLASSIFIED, NON-PHYSICIAN PROVIDER, INDIVIDUAL, PER SESSION 2008 [facility] SKIN TEST; TUBERCULOSIS, INTRADERMAL 2008 [facility] ANALYSIS OF CLINICAL DATA STORED IN COMPUTERS (EG, ECGS, BLOOD PRESSURES, HEMATOLOGIC DATA) 2008 [facility] ANTHRAX VACCINE, FOR SUBCUTANEOUS OR INTRAMUSCULAR USE 2007 [facility] EDUCATIONAL SUPPLIES, SUCH BOOKS, TAPES, AND PAMPHLETS, FOR THE PATIENT'S EDUCATION AT COST TO PHYSICIAN OR OTHER QUALIFIED HEALTH SQL CONSULTANT 2007 [facility] SKIN TEST; TUBERCULOSIS, INTRADERMAL 2007 [facility] TELE ASSESS & MGT SRV PROV QUAL NONPHYS HLTH CARE PRO TO EST PAT,PARENT,GUARD NOT ORIG REL ASSESS & MGT SRV PROV W/IN PREV 7 DAYS NOR LEAD ASSESS & MGT SRV/PX W/IN NXT 24 HR/SOON APT;5-10 MIN MED DIS 2012 [facility] COORDINATED CARE FEE, MAINTENANCE RATE 2011 [facility] LIPOPROTEIN, DIRECT MEASUREMENT; HIGH DENSITY CHOLESTEROL (HDL CHOLESTEROL) 2014 [facility] ELECTROENCEPHALOGRAM (EEG); INCLUDING RECORDING AWAKE AND ASLEEP 2001 [facility] PSYCHIATRIC DIAGNOSTIC EVALUATION 2019 [facility] INFLUENZA VIRUS VACCINE, QUADRIVALENT (IIV4), SPLIT VIRUS, PRESERVATIVE FREE, 0.5 ML DOSAGE, FOR INTRAMUSCULAR USE 2019 [facility]D REMOVAL IMPACTED CERUMEN REQUIRING INSTRUMENTATION, UNILATERAL 2014 [facility] SCREENING TEST OF VISUAL ACUITY, QUANTITATIVE, BILATERAL 2013 [facility] TYPHOID VACCINE, CAPSULAR POLYSACCHARIDE (VICPS), FOR INTRAMUSCULAR USE 2005 [facility] IMMUNIZATION ADMINISTRATION (INCLUDES PERCUTANEOUS, INTRADERMAL, SUBCUTANEOUS, OR INTRAMUSCULAR INJECTIONS); 1 VACCINE (SINGLE OR COMBINATION VACCINE/TOXOID) 2005 [facility] INFLUENZA VIRUS VACCINE, TRIVALENT (IIV3), SPLIT VIRUS, 0.5 ML DOSAGE, FOR INTRAMUSCULAR USE 2004 [facility] HEPATITIS A AND HEPATITIS B VACCINE (HEPA-HEPB), ADULT DOSAGE, FOR INTRAMUSCULAR USE 2004 [facility] Social History Combined list of available smoking, tobacco, and other social history from Department of Defense and Veterans Affairs facilities. Social History Type Response Date Comment Sourc e Tobacco smoking status NHIS VA-TOBACCO FORMER USER 12/03/2023 [facility] History of tobacco use VA-TOBACCO QUIT 1 5 YRS OR MORE 12/03/2023 [facility] History of tobacco use VA-TOBACCO FORMER USER 11/30/2022 [facility] Sex Representation Male (finding) 03/27/2020 Un known Organization History of tobacco use LIFETIME NON-TOBACCO USER 05/09/2008 [facility] Tobacco Quit smoking 2017 Cigarette use:. Ambulatory Pharmacy Sexual Orientation Ambula tory Pharmacy Gender identity Ambulator y Pharmacy This section is an empty social history section. [facility] Assessment and Plan Combined list of future care activities from Department of Defense and Veterans Affairs facilities (e.g., assessment and plan notes, appointments, orders, and referrals). Additional future care activities may be listed in the Plan of Care section. Result Assessment and Plan Date Source Assessment and Plan Extracted from:Title : F2F: back pain, achilles tendinitis Author: YOSEPH STOCK Date: 09/09/20 1. A chilles bursitis or tendinitis [employer] Retires next year, WWQ, no restrictions Refer to Podiatry. Sx > 10 years 2. C LBP - Chronic low back pain F or dx 2,3 has seen agricultural extension specialist at [facility], had MRI which showed no significant abnormality except a hemangioma Recommended treatment includes Mobic 7.5 qd which he is on 3. T horacic back pain 08/18/2024 [facility] Plan of Care List of future care activities from Department of Veterans Affairs facilities. Additional future care activities may be listed in the Assessment and Plan section. Date/Time Care Activity Care Activity Detail Facili ty 11/29/2024 AMBULATORY - MEDICINE AMBULATORY - MEDICI NE [facility] Functional Status Combined list of recent functional and cognitive assessments recorded at Department of Defense and Veterans Affairs (VA).VA Functional Spiro Measurement (FIM) Scale: 1 = Total Assistance (Subject = 0% +), 2 = Maximal Assistance (Subject = 25% +), 3 = Moderate Assistance (Subject = 50% +), 4 = Minimal Assistance (Subject = 75% +), 5 = Supervision, 6 = Modified Spiro (Device), 7 = Complete Spiro (Timely, Safely). Assessment Date/Time Source Assessment Type Assessment Skill Assessment Score Assessment Details No data available for this section
--- OUTSIDE RECORDS SUMMARY | 2024-08-18 13:44 | XMS_ITS | Clinical Summary ---
Author Organization [facility] Address [address] [place] [address] Care Team Providers Care Program Evaluator Name Role Phone Shin Veliz MD Primary Care Provider [phone] Allergies No known active allergies Medications oxyCODONE-aceta [...] this topic Medical Devices Implanted Type Area Product Manager Financial Services Device Identifier Shelf Expiration Date Model / Serial / Lot Zip Tight Fixation System Implanted:Qty: 1 on 12/05/2018 by Coleman Wyman MD at [facility] Right: Ankle [employer] 08/29/2023 [id number] / / [id number] Description:Zip Tight Ankle Syndesmosis Zip Tight Fixation System Implanted:Qty: 1 on 12/05/2018 by Coleman Wyman MD at [facility] Right: Ankle 01/27/2023 [id number] / / [id number] Description:Zip Tight Ankle Syndesmosis Screw Josse 3.5 Cortical Self Tapping 14mm - [id number] Implanted:Qty: 1 on 12/05/2018 by Coleman Wyman MD at [facility] Right: Ankle [employer] [id number] / / Screw Josse 3.5 Cortical Self Tapping 18mm - [id number] Implanted:Qty: 2 on 12/05/2018 by Coleman Wyman MD at [facility] Right: Ankle [employer] [id number] / / Plate Josse Fibular Distal Lateral 8h 132mm Right - [id number] Implanted:Qty: 1 on 12/05/2018 by Coleman Wyman MD at [facility] Right: Ankle [employer] [id number] / / Screw Josse Periloc 3.5 X 16mm - [id number] Implanted:Qty: 3 on 12/05/2018 by Coleman Wyman MD at [facility] Right: Ankle [employer] [id number] / / Screw Locking Josse 2.7 X 12mm - [id number] Implanted:Qty: 1 on 12/05/2018 by Coleman Wyman MD at [facility] Right: Ankle [employer] [id number] / / Screw Locking Josse 2.7 X 18mm - [id number] Implanted:Qty: 1 on 12/05/2018 by Coleman Wyman MD at [facility] Right: Ankle [employer] [id number] / / Explanted Type Area Product Manager Financial Services Device Identifier Shelf Expiration Date Model / Serial / Lot Drill Bit Josse 2mm Std - [id number] Explanted:Qty: 1 on 12/05/2018 at [facility] Right: Ankle [employer] [id number] / / Drill Bit Josse 2.5mm - [id number] Explanted:Qty: 1 on 12/05/2018 at [facility] Right: Ankle [employer] [id number] / / Drill Bit Josse 2.7mm Qc - [id number] Explanted:Qty: 1 on 12/05/2018 at [facility] Right: Ankle [employer] [id number] / / Drill Bit Josse 3.5mm Qc - [id number] Explanted:Qty: 1 on 12/05/2018 at [facility] Right: Ankle [employer] [id number] / / Screw Josse Periloc 3.5 X 16mm - [id number] Explanted:Qty: 1 on 12/05/2018 at [facility] Right: Ankle [employer] [id number] / / Insurance Care Teams Program Evaluator Relationship Specialty Start Date End Date Shin Veliz MD [address] [place] [id number] PCP - General FAMILY PRACTICE 11/24/18
--- OUTSIDE RECORDS SUMMARY | 2024-08-18 13:44 | XMS_ITS | Encounter Summary ---
Author Organization [facility] Address [facility] [place] [address] Care Team Providers Care Bad Credit Collector Name Role Phone Shin Veliz MD Primary Care Provider [phone] Encounter Details Date Type Department Care Team (Late st Contact Info) Description 12/01/[address] [facility] [address] [place] [address] Coleman Wyman MD [address] [facility] [address] [place] [address] Social History Tobacco Use Types [...] SPEC DESCRIPTION NASAL 12/02/2018 10:38 AM CDT [facility] SPECIAL REQUESTS NO SPECIAL REQUEST 12/02/2018 10:38 AM CDT [facility] CULTURE RESULT NO METHICILLIN RESISTANT STAPH AUREUS ISOLATED 12/03/2018 1:18 PM CDT [facility] SPECIMEN FROM INTERNAL NOSE / Unknown 12/02/2018 10:44 AM CDT 12/02/2018 10:45 AM CDT us Coleman Wyman MD MICROBIOLOGY - GENERAL MAXWELL WADE Final Result [facility] [address] [place] [address], [place] [phone] documented in this encounter Visit Diagnoses Diagnosis Preop testing- Primary Preoperative examination, unspecified documented in this encounter Care Teams Bad Credit Collector Relationship Specialty Start Date End Date Shin Veliz MD [address] [place] [address] PCP - General FAMILY PRACTICE 11/24/18 documented as of this encounter
== END 2024-08-18 13:40 | disposition home or self-care (01) ==
LOC: ANHIMG 13:42
PROVIDERS: PCP Family Medicine; Visit Provider Family Medicine
DX: R10.11 Right upper quadrant pain (principal)
CPT/HCPCS: 74176